=== PATIENT | female | born 1980 | race American Indian/Alaskan Native ===

== ENCOUNTER 2020-05-01 14:44 | Emergency (ER) | payer OTHER ==
[2020-05-01 16:26] VITALS: BP 135/62
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
[2020-05-01] MEDS ORDERED: ACETAMINOPHEN 325 MG TAB PO ONE (18:16)
[2020-05-01] MEDS ORDERED: ACETAMINOPHEN 325 MG TAB ONE (18:17)
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
== END 2020-05-02 20:15 | disposition home or self-care (01) ==
LOC: ED 14:44
DX: S13.4XXA Sprain of ligaments of cervical spine, initial encounter (principal); R51.9 Headache, unspecified; Z79.899 Other long term (current) drug therapy; V49.49XA Driver injured in collision with other motor vehicles in traffic accident, initial encounter; Y93.89 Activity, other specified; Y92.488 Other paved roadways as the place of occurrence of the external cause; Y99.8 Other external cause status
CPT/HCPCS: 70450; 72125; 99283

== ENCOUNTER 2020-05-29 12:06 | Emergency (ER) | payer SELFPAY ==
--- NOTE | 2020-05-29 13:32 | Emergency Department Report ---
ED General Adult HPI - General Chief complaint: Urogenital-Female Stated complaint: POSS UTI Time Seen by Provider: 05/29/20 13:21 Source: patient Mode of arrival: Ambulatory Limitations: No Limitations - History of Present Illness Initial comments: This pleasant 40-year-old female presents the emerge department chief complaint of pressure after she urinates, dysuria and urinary frequency over the past few weeks. She has been trying cranberry juice and AZO with only minimal relief in her symptoms. She denies any past medical history, current medication use or known allergies medications. She is not concerned if she is or not but does report she took a morning-after pill 2 days ago. She denies any vaginal discharge or concern about exposure to STDs. She denies abdominal or flank pain. She denies any associated fever, chills, night sweats, headache, dizziness, blurry vision, nausea,, diarrhea, chest pain, shortness of breath or any other associated symptoms. - Related Data Previous Rx's Medication Instructions Recorded Last Taken Type Dicyclomine [Bentyl] 20 mg PO Q6H PRN #30 tablet 01/12/20 Unknown Rx Diphenoxylate/Atropine [Lomotil] 1 - 2 tab PO Q4H PRN #15 tablet 01/12/20 Unknown Rx Famotidine [Pepcid] 20 mg PO BID #30 tablet 01/12/20 Unknown Rx Ondansetron [Zofran Odt] 4 mg PO Q6HR PRN #20 tab.rapdis 01/12/20 Unknown Rx Cyclobenzaprine [Flexeril] 10 mg PO QHS PRN #10 tablet 05/01/20 Unknown Rx Naproxen 500 mg PO Q12H PRN #12 tablet 05/01/20 Unknown Rx Ibuprofen [Motrin] 600 mg PO Q8H PRN #30 tablet 05/29/20 Unknown Rx Nitrofurantoin Geary/M-Cryst 100 mg PO Q12HR #14 capsule 05/29/20 Unknown Rx [Macrobid CAP] Allergies Allergy/AdvReac Type Severity Reaction Status Date / Time No Known Allergies Allergy Verified 01/11/20 20:18 ED Review of Systems ROS: Stated complaint: POSS UTI Other details as noted in HPI Comment: All other systems reviewed and negative Constitutional: denies: chills, fever Eyes: denies: eye pain, eye discharge, vision change ENT: denies: ear pain, throat pain Respiratory: denies: cough, shortness of breath, wheezing Cardiovascular: denies: chest pain, palpitations Endocrine: no symptoms reported Gastrointestinal: as per HPI. denies: abdominal pain, nausea, diarrhea Genitourinary: as per HPI, urgency, dysuria, frequency. denies: discharge Musculoskeletal: denies: back pain, joint swelling, arthralgia Skin: denies: rash, lesions Neurological: denies: headache, weakness, paresthesias Psychiatric: denies: anxiety, depression Hematological/Lymphatic: denies: easy bleeding, easy bruising ED Past Medical Hx - Past Medical History Previous Medical History?: No - Surgical History Past Surgical History?: No Additional Surgical History: x2 - Social History Smoking Status: Never Smoker Substance Use Type: Alcohol - Medications Home Medications: Home Medications Medication Instructions Recorded Confirmed Last Taken Type Dicyclomine [Bentyl] 20 mg PO Q6H PRN #30 tablet 01/12/20 Unknown Rx Diphenoxylate/Atropine [Lomotil] 1 - 2 tab PO Q4H PRN #15 tablet 01/12/20 Unknown Rx Famotidine [Pepcid] 20 mg PO BID #30 tablet 01/12/20 Unknown Rx Ondansetron [Zofran Odt] 4 mg PO Q6HR PRN #20 tab.rapdis 01/12/20 Unknown Rx Cyclobenzaprine [Flexeril] 10 mg PO QHS PRN #10 tablet 05/01/20 Unknown Rx Naproxen 500 mg PO Q12H PRN #12 tablet 05/01/20 Unknown Rx Ibuprofen [Motrin] 600 mg PO Q8H PRN #30 tablet 05/29/20 Unknown Rx Nitrofurantoin Geary/M-Cryst 100 mg PO Q12HR #14 capsule 05/29/20 Unknown Rx [Macrobid CAP] ED Physical Exam - General Limitations: No Limitations General appearance: alert, in no apparent distress - Head Head exam: Present: atraumatic, normocephalic - Eye Eye exam: Present: normal appearance, PERRL, EOMI Pupils: Present: normal accommodation - ENT ENT exam: Present: normal exam, normal orophraynx, mucous membranes moist - Neck Neck exam: Present: normal inspection, full ROM. Absent: tenderness, meni ngismus - Respiratory Respiratory exam: Present: normal lung sounds bilaterally. Absent: respiratory distress, wheezes, rales, rhonchi, stridor - Cardiovascular Cardiovascular Exam: Present: regular rate, normal rhythm, normal heart sounds. Absent: systolic murmur, diastolic murmur, rubs, gallop - GI/Abdominal GI/Abdominal exam: Present: soft, normal bowel sounds. Absent: distended, tenderness, guarding, rebound, rigid - Extremities Exam Extremities exam: Present: normal inspection, full ROM, normal capillary refill. Absent: tenderness, calf tenderness - Back Exam Back exam: Present: normal inspection, full ROM. Absent: tenderness, CVA tenderness (R), CVA tenderness (L) - Neurological Exam Neurological exam: Present: alert, oriented X3, normal gait - Psychiatric Psychiatric exam: Present: normal affect, normal mood - Skin Skin exam: Present: warm, dry, intact, normal color. Absent: rash ED Medical Decision Making - Lab Data Lab Results 05/29/20 Range/Units 13:13 Urine Color Ginny (Yellow) Urine Turbidity Clear (Clear) Urine pH 7.0 (5.0-7.0) Ur Specific Trail 1.012 (1.003-1.030) Urine Protein <15 mg/dl (Negative) mg/dL Urine Glucose (UA) Neg (Negative) mg/dL Urine Ketones Neg (Negative) mg/dL Urine Blood Neg (Negative) Urine Nitrite Pos (Negative) Urine Bilirubin Neg (Negative) Urine Urobilinogen 4.0 (<2.0) mg/dL Ur Leukocyte Esterase Neg (Negative) Urine WBC (Auto) 8.0 H (0.0-6.0) /HPF Urine RBC (Auto) 4.0 (0.0-6.0) /HPF U Epithel Cells (Auto) 4.0 (0-13.0) /HPF Urine Bacteria (Auto) 1+ (Negative) /HPF Urine Mucus Few /HPF Urine HCG, Qual Negative (Negative) - Medical Decision Making Patient's exam, HPI and urine are consistent with urinary tract infection. test was negative. Patient declined any screening for STD and had no pelvic pain making my suspicion for PID or TOA unlikely. We will treat her with Macrobid, anti-inflammatories and recommended outpatient follow-up with primary care doctor. She is instructed to return the emerge department if develops any change or worsening symptoms. She verbalized understand the diagnosis, treatment plan and follow-up instructions and all of her questions were answered. Critical care attestation.: If time is entered above; I have spent that time in minutes in the direct care of this critically ill patient, excluding procedure time. ED Disposition Clinical Impression: Acute cystitis Qualifiers: Hematuria presence: with hematuria Qualified Code(s): N30.01 - Acute cystitis with hematuria Disposition: TO HOME OR SELFCARE Is pt being admited?: No Condition: Stable Instructions: Urinary Tract Infection, Adult, [id number] Prescriptions: Nitrofurantoin Geary/M-Cryst [Macrobid CAP] 100 mg PO Q12HR #14 capsule Ibuprofen [Motrin] 600 mg PO Q8H PRN #30 tablet PRN Reason: Pain Referrals: [facility] [Provider Group] - 3-5 Days Time of Disposition: 14:22
[2020-05-29 13:56] LABS: Bacteria,Urine 1+ /HPF (Negative); Bilirubin,Urine NEG (Negative); Blood,Urine NEG (Negative); Color,Urine Amber (Yellow); Mucus,Urine FEW /HPF; Protein,Urine <15 mg/dL mg/dL (Negative)
[2020-05-29 14:03] LABS: HCG Qualitative,Urine Negative (Negative)
== END 2020-05-29 14:32 | disposition home or self-care (01) ==
LOC: ED 12:06
DX: N30.00 Acute cystitis without hematuria (principal); Z79.899 Other long term (current) drug therapy; Z98.890 Other specified postprocedural states
CPT/HCPCS: 81001; 81025; 99283

== ENCOUNTER 2020-09-08 14:06 | Emergency (ER) | payer SELFPAY ==
[2020-09-08 14:20] VITALS: BP 119/85
[2020-09-08 15:29] LABS: Bilirubin,Urine NEG (Negative); Blood,Urine NEG (Negative); Color,Urine Yellow (Yellow); Mucus,Urine 3+ /HPF; Urobilinogen,Urine < 2.0 mg/dL (<2.0)
[2020-09-08 15:30] LABS: HCG Qualitative,Urine Negative (Negative)
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
== END 2020-09-08 16:19 | disposition home or self-care (01) ==
LOC: ED 14:06
DX: R30.0 Dysuria (principal); N76.0 Acute vaginitis; Z79.899 Other long term (current) drug therapy
CPT/HCPCS: 81001; 81025; 99283

== ENCOUNTER 2020-11-22 13:34 | Emergency (ER) | payer OTHER ==
[2020-11-22 14:12] VITALS: BP 117/66
--- NOTE | 2020-11-22 14:22 | Event Note ---
ED Screening Note Date of service: 11/22/20 Time: 14:21 ED Screening Note: 40-year-old female patient presents emergency department with complaints of vaginal discharge for 2 days. Patient is concerned about possible STD exposure. 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 General: Awake, appropriately interactive. Tearful, anxious. Neck: Supple. Full range of motion intact. Cardiovascular: Normal peripheral perfusion. Pulmonary: No respiratory distress. Patient is speaking normally without use of accessory muscles. Skin: No apparent rashes or lesions. Neurological: No facial asymmetry. Speech is clear. Follows commands. Patient is alert and oriented. Musculoskeletal: Moves all four extremities spontaneously with normal range of motion. Psych: Cooperative. Appropriate mood and affect. I have greeted and performed a focused rapid initial assessment of this patient. A comprehensive ED assessment and evaluation of the patient, analysis of all test results, and completion of the medical decision-making process will be conducted by additional ED providers. This initial assessment/diagnostic orders/clinical plan/treatment(s) is/are subject to change based on patients health status, clinical progression and re-assessment. Further treatment and workup at subsequent clinical provider's discretion. Patient/guardian urged not to elope from the ED as their condition may be serious if not clinically assessed and managed.
[2020-11-22 15:08] LABS: Bacteria,Urine 1+ /HPF (Negative); Bilirubin,Urine NEG (Negative); Blood,Urine SM (Negative); Color,Urine Yellow (Yellow); Mucus,Urine 1+ /HPF; Urobilinogen,Urine < 2.0 mg/dL (<2.0)
[2020-11-22 15:13] LABS: HCG Qualitative,Urine Negative (Negative)
[2020-11-22] MEDS ORDERED: LIDOCAINE-MPF (1%) 10 MG/1 ML VIAL 5 ML INFILTRATI ONE (15:30)
[2020-11-22] MEDS ORDERED: AZITHROMYCIN 250 MG TAB PO ONE (15:30)
--- NOTE | 2020-11-22 15:32 | Emergency Department Report ---
ED Dysuria HPI - HPI Chief Complaint: Urogenital-Female Stated Complaint: BACTERIAL INFECTION Time Seen by Provider: 11/22/20 15:28 Severity: Mild Symptoms: Dysuria: No, Frequency: No, Suprapubic Pain: No, Flank Pain: No, Fever: No, Hematuria: No, Abdominal Pain: No, Previous UTI's: No Other History: Patient is a 40-year-old female that comes to the ER today complaining of vaginal discharge. She thinks it is her BV which she has reportedly had in the past. She states she was treated for this here a couple months ago and her symptoms got better. She did not follow-up with her primary care or OB. She then adds that she is going through divorce and she thinks her is cheating on her. She is very constricted and with 2 small children in the room. She is refusing to have a wet prep at this time. She will follow up with her HARP MAKER. However, given her concerns I am treating her empirically for STI. EMR has been reviewed and there was no BV on her last wet prep. Patient states that she has never had an STI. ED Review of Systems ROS: Stated complaint: BACTERIAL INFECTION Other details as noted in HPI Comment: All other systems reviewed and negative ED Past Medical Hx - Past Medical History Previous Medical History?: No - Surgical History Past Surgical History?: Yes Additional Surgical History: x2 - Family History Family history: no significant - Social History Smoking Status: Never Smoker - Medications Home Medications: Home Medications Medication Instructions Recorded Confirmed Last Taken Type Dicyclomine [Bentyl] 20 mg PO Q6H PRN #30 tablet 01/12/20 Unknown Rx Diphenoxylate/Atropine [Lomotil] 1 - 2 tab PO Q4H PRN #15 tablet 01/12/20 Unknown Rx Famotidine [Pepcid] 20 mg PO BID #30 tablet 01/12/20 Unknown Rx Ondansetron [Zofran Odt] 4 mg PO Q6HR PRN #20 tab.rapdis 01/12/20 Unknown Rx Cyclobenzaprine [Flexeril] 10 mg PO QHS PRN #10 tablet 05/01/20 Unknown Rx Naproxen 500 mg PO Q12H PRN #12 tablet 05/01/20 Unknown Rx Ibuprofen [Motrin] 600 mg PO Q8H PRN #30 tablet 05/29/20 Unknown Rx Nitrofurantoin [place]/M-Cryst 100 mg PO Q12HR #14 capsule 05/29/20 Unknown Rx [Macrobid CAP] metroNIDAZOLE [Flagyl TAB] 500 mg PO Q12HR #14 tab 11/22/20 Unknown Rx Dysuria Exam - Exam General: Vital signs noted. No distress. Alert and acting appropriately. Exam: Yes Moist Mucous Membranes, No CVA Tenderness, No Abdominal Tenderness, No Rigidity or Guarding Labs: Lab Results 11/22/20 Range/Units 14:40 Urine Color Yellow (Yellow) Urine Turbidity Slightly-cloudy (Clear) Urine pH 5.0 (5.0-7.0) Ur Specific [place] 1.026 (1.003-1.030) Urine Protein 100 mg/dl (Negative) mg/dL Urine Glucose (UA) Neg (Negative) mg/dL Urine Ketones Neg (Negative) mg/dL Urine Blood Sm (Negative) Urine Nitrite Neg (Negative) Urine Bilirubin Neg (Negative) Urine Urobilinogen < 2.0 (<2.0) mg/dL Ur Leukocyte Esterase Neg (Negative) Urine WBC (Auto) 5.0 (0.0-6.0) /HPF Urine RBC (Auto) 6.0 (0.0-6.0) /HPF U Epithel Cells (Auto) 7.0 (0-13.0) /HPF Urine Bacteria (Auto) 1+ (Negative) /HPF Urine Mucus 1+ /HPF Urine HCG, Qual Negative (Negative) ED Course Vital Signs 11/22/20 13:56 Temperature 98.3 F Pulse Rate 70 Respiratory 18 Rate Blood Pressure 117/66 O2 Sat by Pulse 98 Oximetry ED Medical Decision Making - Medical Decision Making Vital Signs 11/22/20 13:56 Temperature 98.3 F Pulse Rate 70 Respiratory 18 Rate Blood Pressure 117/66 O2 Sat by Pulse 98 Oximetry Lab Results 11/22/20 Range/Units 14:40 Urine Color Yellow (Yellow) Urine Turbidity Slightly-cloudy (Clear) Urine pH 5.0 (5.0-7.0) Ur Specific [place] 1.026 (1.003-1.030) Urine Protein 100 mg/dl (Negative) mg/dL Urine Glucose (UA) Neg (Negative) mg/dL Urine Ketones Neg (Negative) mg/dL Urine Blood Sm (Negative) Urine Nitrite Neg (Negative) Urine Bilirubin Neg (Negative) Urine Urobilinogen < 2.0 (<2.0) mg/dL Ur Leukocyte Esterase Neg (Negative) Urine WBC (Auto) 5.0 (0.0-6.0) /HPF Urine RBC (Auto) 6.0 (0.0-6.0) /HPF U Epithel Cells (Auto) 7.0 (0-13.0) /HPF Urine Bacteria (Auto) 1+ (Negative) /HPF Urine Mucus 1+ /HPF Urine HCG, Qual Negative (Negative) UA NOTED PREG NOTED EMPIRIC TREATMENT FOR STI DC HOME ON FLAGYL On discharge patient is in no acute distress. Patient taking p.o. She is nontoxic [id number]. She has normal vital signs. She understands the need to follow-up with [facility] for ongoing evaluation and treatment. - Differential Diagnosis UTI/BV/STI Critical care attestation.: If time is entered above; I have spent that time in minutes in the direct care of this critically ill patient, excluding procedure time. ED Disposition Clinical Impression: Vaginitis Disposition: DC-01 TO HOME OR SELFCARE Is pt being admited?: No Does the pt Need Aspirin: No Condition: Stable Prescriptions: metroNIDAZOLE [Flagyl TAB] 500 mg PO Q12HR #14 tab Referrals: CANDICE ÁLVAREZ MD [Staff Physician] - 3-5 Days Forms: Work/School Release Form(ED) Time of Disposition: 15:31
== END 2020-11-22 16:08 | disposition home or self-care (01) ==
LOC: ED 13:34
DX: N76.0 Acute vaginitis (principal); Z98.890 Other specified postprocedural states; Z79.899 Other long term (current) drug therapy
CPT/HCPCS: 81001; 81025; 96372; 99283; J0696

== ENCOUNTER 2021-01-22 20:15 | Emergency (ER) | payer OTHER ==
--- NOTE | 2021-01-23 00:15 | Emergency Department Report ---
ED Female HPI - General Chief complaint: Urogenital-Female Stated complaint: POSS BV Time Seen by Provider: 01/22/21 22:57 Source: patient Mode of arrival: Ambulatory Limitations: No Limitations - History of Present Illness Initial comments: 40-year-old asthmatic female with emerge department complaining of recurrent vaginal discharge have multiple episodes of bacterial vaginosis which she has had treated earlier in the month and has reemerged and she is seeking further evaluation treatment options to eradicate the issue. She states she is unsure why it keeps returning but she takes medication in its entirety but she not even able to follow-up with her D[employer]ING SERVICE WORKER so she returns emergency department today seeking another bacterial vaginosis treatment. Patient states the last time she was treated for STD panel but she reports no possibility for STDs occurred MD Complaint: vaginal discharge, other (Malodorous vaginal discharge) Severity: mild Consistency: constant Improves with: none Worsens with: none - Related Data Previous Rx's Medication Instructions Recorded Last Taken Type Dicyclomine [Bentyl] 20 mg PO Q6H PRN #30 tablet 01/12/20 Unknown Rx Diphenoxylate/Atropine [Lomotil] 1 - 2 tab PO Q4H PRN #15 tablet 01/12/20 Unknown Rx Famotidine [Pepcid] 20 mg PO BID #30 tablet 01/12/20 Unknown Rx Ondansetron [Zofran Odt] 4 mg PO Q6HR PRN #20 tab.rapdis 01/12/20 Unknown Rx Cyclobenzaprine [Flexeril] 10 mg PO QHS PRN #10 tablet 05/01/20 Unknown Rx Naproxen 500 mg PO Q12H PRN #12 tablet 05/01/20 Unknown Rx Ibuprofen [Motrin] 600 mg PO Q8H PRN #30 tablet 05/29/20 Unknown Rx Nitrofurantoin [place]/M-Cryst 100 mg PO Q12HR #14 capsule 05/29/20 Unknown Rx [Macrobid CAP] metroNIDAZOLE [Flagyl TAB] 500 mg PO Q12HR #14 tab 11/22/20 Unknown Rx Clindamycin [Clindamycin CAP] 150 mg PO Q8HR #30 capsule 01/22/21 Unknown Rx Allergies Allergy/AdvReac Type Severity Reaction Status Date / Time No Known Allergies Allergy Verified 01/11/20 20:18 ED Review of Systems ROS: Stated complaint: POSS BV Other details as noted in HPI Comment: All other systems reviewed and negative ED Past Medical Hx - Past Medical History Previous Medical History?: No - Surgical History Past Surgical History?: Yes Additional Surgical History: x2 - Social History Smoking Status: Never Smoker - Medications Home Medications: Home Medications Medication Instructions Recorded Confirmed Last Taken Type Dicyclomine [Bentyl] 20 mg PO Q6H PRN #30 tablet 01/12/20 Unknown Rx Diphenoxylate/Atropine [Lomotil] 1 - 2 tab PO Q4H PRN #15 tablet 01/12/20 Unknown Rx Famotidine [Pepcid] 20 mg PO BID #30 tablet 01/12/20 Unknown Rx Ondansetron [Zofran Odt] 4 mg PO Q6HR PRN #20 tab.rapdis 01/12/20 Unknown Rx Cyclobenzaprine [Flexeril] 10 mg PO QHS PRN #10 tablet 05/01/20 Unknown Rx Naproxen 500 mg PO Q12H PRN #12 tablet 05/01/20 Unknown Rx Ibuprofen [Motrin] 600 mg PO Q8H PRN #30 tablet 05/29/20 Unknown Rx Nitrofurantoin [place]/M-Cryst 100 mg PO Q12HR #14 capsule 05/29/20 Unknown Rx [Macrobid CAP] metroNIDAZOLE [Flagyl TAB] 500 mg PO Q12HR #14 tab 11/22/20 Unknown Rx Clindamycin [Clindamycin CAP] 150 mg PO Q8HR #30 capsule 01/22/21 Unknown Rx ED Physical Exam - General Limitations: No Limitations General appearance: alert, in no apparent distress - Head Head exam: Present: atraumatic, normocephalic - Eye Eye exam: Present: normal appearance, PERRL, EOMI Pupils: Present: normal accommodation - ENT ENT exam: Present: normal exam, normal orophraynx, mucous membranes moist - Neck Neck exam: Present: normal inspection - Respiratory Respiratory exam: Present: normal lung sounds bilaterally. Absent: respiratory distress - Cardiovascular Cardiovascular Exam: Present: regular rate, normal rhythm. Absent: systolic murmur, diastolic murmur, rubs, gallop - GI/Abdominal GI/Abdominal exam: Present: soft, normal bowel sounds - Extremities Exam Extremities exam: Present: normal inspection - Back Exam Back exam: Present: normal inspection - Neurological Exam Neurological exam: Present: alert, oriented X3 - Psychiatric Psychiatric exam: Present: normal affect, normal mood - Skin Skin exam: Present: warm, dry, intact, normal color. Absent: rash ED Course Vital Signs 01/22/21 20:31 Temperature 98.6 F Pulse Rate 76 Respiratory 16 Rate Blood Pressure 145/75 O2 Sat by Pulse 100 Oximetry ED Medical Decision Making - Medical Decision Making Four 1-year-old [place]inese female with recurrent bacterial vaginosis infections presents emerged department seeking treatment for another episode. Reports no pelvic pain or abdominal pain no fever, chills, sweats no vaginal bleeding no dysuria strongly encourage patient to follow-up with a DINING SERVICE WORKER for definitive treatment/management of this recurrent issue and also provided her with a few DINING SERVICE WORKER groups in the area which would be a good candidate for her to follow-up. She did receive this in the past but has not yet followed up as recommended but states that she will do so now that the issue is continuously reemerging Critical care attestation.: If time is entered above; I have spent that time in minutes in the direct care of this critically ill patient, excluding procedure time. ED Disposition Clinical Impression: Vaginitis Disposition: DC-01 TO HOME OR SELFCARE Is pt being admited?: No Does the pt Need Aspirin: No Condition: Stable Instructions: Bacterial Vaginosis, [id number] Prescriptions: Clindamycin [Clindamycin CAP] 150 mg PO Q8HR #30 capsule Referrals: [facility] [Provider Group] - 3-5 Days [facility] [Provider Group] - 3-5 Days [facility] [Provider Group] - 3-5 Days
== END 2021-01-22 23:59 | disposition home or self-care (01) ==
LOC: ED 20:15
CPT/HCPCS: 99282

== ENCOUNTER 2021-06-17 07:49 | Emergency (ER) | payer OTHER ==
[2021-06-17] MEDS ORDERED: KETOROLAC 60 MG/2 ML INJ IM ONE ×2 (08:07→13:56)
[2021-06-17] MEDS ORDERED: CYCLOBENZAPRINE 10 MG TAB PO ONE ×2 (08:07→13:56)
[2021-06-17] MEDS ORDERED: predniSONE 20 MG TAB PO ONE ×2 (08:07→13:56)
--- NOTE | 2021-06-17 09:08 | Emergency Department Report ---
ED Neck Pain/Injury HPI - General Chief Complaint: Neck Pain/Injury Stated Complaint: "FEEL LIKE HAVING HEART ATTACK" Time Seen by Provider: 06/17/21 08:02 Mode of arrival: Ambulatory Limitations: No Limitations - History of Present Illness Initial Comments: This is a 41-year-old female nontoxic, well nourished in appearance, no acute signs of distress presents to the ED with c/o of left sided upper back/neck pain x 3 days. 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 Patient states that pain radiates through to his left upper extremity. When I asked patient why she believes she is having a heart attack because this is where her sinus sheet was, patient stated because she is having left-sided neck pain with radiation to her left arm and she was concerned. Patient otherwise denies any complaints of chest pain or shortness of breath. Patient denies any other complaints or symptoms. Patient stated pain is aggravated with movement on her left cervical paraspinal area and revealed with rest and no movement. Patient denies any trauma. Denies any bladder or bowel instability. Patient denies any urinary symptoms. Denies any fever, chills, nausea, vomiting, headache, stiff neck, chest pain or shortness of breath. Patient denies any numbness or tingling. Denies any allergies. Denies significant past medical history. MD Complaint: upper back pain -: days(s) Radiation: left shoulder, left upper extremity Severity: mild Severity scale (0 -10): 3 Quality: aching Consistency: intermittent Improves With: immobilization Worsens With: movement of extremity, movement of neck Associated Symptoms: none. denies: headache, fever, numbness, tingling, weakness, vertigo, difficulty walking, swollen glands, difficulty swallowing, nausea, vomiting Treatments Prior to Arrival: none - Related Data Previous Rx's Medication Instructions Recorded Last Taken Type Dicyclomine [Bentyl] 20 mg PO Q6H PRN #30 tablet 01/12/20 Unknown Rx Diphenoxylate/Atropine [Lomotil] 1 - 2 tab PO Q4H PRN #15 tablet 01/12/20 Unknown Rx Famotidine [Pepcid] 20 mg PO BID #30 tablet 01/12/20 Unknown Rx Ondansetron [Zofran Odt] 4 mg PO Q6HR PRN #20 tab.rapdis 01/12/20 Unknown Rx Cyclobenzaprine [Flexeril] 10 mg PO QHS PRN #10 tablet 05/01/20 Unknown Rx Naproxen 500 mg PO Q12H PRN #12 tablet 05/01/20 Unknown Rx Ibuprofen [Motrin] 600 mg PO Q8H PRN #30 tablet 05/29/20 Unknown Rx Nitrofurantoin [place]/M-Cryst 100 mg PO Q12HR #14 capsule 05/29/20 Unknown Rx [Macrobid CAP] metroNIDAZOLE [Flagyl TAB] 500 mg PO Q12HR #14 tab 11/22/20 Unknown Rx Clindamycin [Clindamycin CAP] 150 mg PO Q8HR #30 capsule 01/22/21 Unknown Rx Cyclobenzaprine [Flexeril] 10 mg PO QHS PRN #10 tablet 06/17/21 Unknown Rx Naproxen 500 mg PO Q12H PRN #12 tablet 06/17/21 Unknown Rx Allergies Allergy/AdvReac Type Severity Reaction Status Date / Time No Known Allergies Allergy Verified 01/11/20 20:18 ED Review of Systems ROS: Stated complaint: "FEEL LIKE HAVING HEART ATTACK" Other details as noted in HPI Comment: All other systems reviewed and negative Constitutional: denies: chills, fever Eyes: denies: eye pain, eye discharge, vision change ENT: denies: ear pain, throat pain Respiratory: denies: cough, shortness of breath, wheezing Cardiovascular: denies: chest pain, palpitations Endocrine: no symptoms reported Gastrointestinal: denies: abdominal pain, nausea, diarrhea Genitourinary: denies: urgency, dysuria, discharge Musculoskeletal: denies: back pain, joint swelling, arthralgia Skin: denies: rash, lesions Neurological: denies: headache, weakness, paresthesias Psychiatric: denies: anxiety, depression Hematological/Lymphatic: denies: easy bleeding, easy bruising ED Past Medical Hx - Past Medical History Previous Medical History?: Yes Additional medical history: high cholesterol - Surgical History Past Surgical History?: Yes Additional Surgical History: x2 - Social History Smoking Status: Never Smoker - Medications Home Medications: Home Medications Medication Instructions Recorded Confirmed Last Taken Type Dicyclomine [Bentyl] 20 mg PO Q6H PRN #30 tablet 01/12/20 Unknown Rx Diphenoxylate/Atropine [Lomotil] 1 - 2 tab PO Q4H PRN #15 tablet 01/12/20 Unknown Rx Famotidine [Pepcid] 20 mg PO BID #30 tablet 01/12/20 Unknown Rx Ondansetron [Zofran Odt] 4 mg PO Q6HR PRN #20 tab.rapdis 01/12/20 Unknown Rx Cyclobenzaprine [Flexeril] 10 mg PO QHS PRN #10 tablet 05/01/20 Unknown Rx Naproxen 500 mg PO Q12H PRN #12 tablet 05/01/20 Unknown Rx Ibuprofen [Motrin] 600 mg PO Q8H PRN #30 tablet 05/29/20 Unknown Rx Nitrofurantoin [place]/M-Cryst 100 mg PO Q12HR #14 capsule 05/29/20 Unknown Rx [Macrobid CAP] metroNIDAZOLE [Flagyl TAB] 500 mg PO Q12HR #14 tab 11/22/20 Unknown Rx Clindamycin [Clindamycin CAP] 150 mg PO Q8HR #30 capsule 01/22/21 Unknown Rx Cyclobenzaprine [Flexeril] 10 mg PO QHS PRN #10 tablet 06/17/21 Unknown Rx Naproxen 500 mg PO Q12H PRN #12 tablet 06/17/21 Unknown Rx ED Physical Exam - General Limitations: No Limitations General appearance: alert, in no apparent distress - Head Head exam: Present: atraumatic, normocephalic - Eye Eye exam: Present: normal appearance - Neck Neck exam: Present: normal inspection, full ROM. Absent: lymphadenopathy - Respiratory Respiratory exam: Present: normal lung sounds bilaterally. Absent: respiratory distress, wheezes, rales, rhonchi, stridor, chest wall tenderness, accessory muscle use, decreased breath sounds, prolonged expiratory - Cardiovascular Cardiovascular Exam: Present: regular rate, normal rhythm, normal heart sounds. Absent: bradycardia, tachycardia, irregular rhythm, systolic murmur, diastolic murmur, rubs, gallop - Extremities Exam Extremities exam: Present: normal inspection, full ROM, normal capillary refill. Absent: tenderness, joint swelling - Back Exam Back exam: Present: normal inspection, full ROM, paraspinal tenderness (left cervical paraspinal area). Absent: tenderness, CVA tenderness (R), CVA tenderness (L), muscle spasm, vertebral tenderness, rash noted - Neurological Exam Neurological exam: Present: alert, oriented X3, normal gait - Psychiatric Psychiatric exam: Present: normal affect, normal mood - Skin Skin exam: Present: warm, dry, intact, normal color. Absent: rash ED Course Vital Signs 06/17/21 07:52 Temperature 98 F Pulse Rate 85 Respiratory 16 Rate Blood Pressure 123/90 [Right] O2 Sat by Pulse 100 Oximetry - Reevaluation(s) Reevaluation #1: 06/17/21 09:10 Patient is speaking in full sentences with no signs of distress noted. ED Medical Decision Making - Medical Decision Making This is a 41-year-old female that presents with neck muscle strain. Patient is stable was examined by me. There is no spinal tenderness. There is no cauda equina syndrome during examination. No bladder or bowel instability. Patient received Toradol 60 mg IM, flexeril, and Prednisone in the ED which stated that her symptoms has resolved and subsided. Patient stated family member will drive patient home after discharge due to possible drowsiness. Patient is discharged with muscle relaxant and Motrin. Patient was instructed not to operate any machinery while taking muscle relaxant as they cause her drowsiness. Patient was referred to Follow-up with a primary care doctor in 3-5 days or if symptoms worsen and continue return to emergency room as soon as possible. At time of discharge, the patient does not seem toxic or ill in appearance. No acute signs of distress noted. Patient agrees to discharge treatment plan of care. No further questions noted by the patient. This chart is dictated with using [employer] Dictation Program Critical care attestation.: If time is entered above; I have spent that time in minutes in the direct care of this critically ill patient, excluding procedure time. ED Disposition Clinical Impression: Cervical muscle pain Disposition: 01 HOME / SELF CARE / HOMELESS Is pt being admited?: No Does the pt Need Aspirin: No Condition: Stable Instructions: Muscle Strain, [id number], Cyclobenzaprine tablets Additional Instructions: Follow-up with your primary care doctor in 3-5 days or if symptoms worsen such as bladder or bowel stability, chest pain, short of breath, numbness or tingling sensation in extremities, headache, dizziness, visual changes, nausea vomiting, or abdominal pain, return back to emergency room as was possible. Take naproxen and Flexeril as prescribed. Do not operate heavy machinery while taking Flexeril due to sedation Prescriptions: Cyclobenzaprine [Flexeril] 10 mg PO QHS PRN #10 tablet PRN Reason: Muscle Spasm Naproxen 500 mg PO Q12H PRN #12 tablet PRN Reason: Pain , Severe (7-10) Referrals: PRIMARY CARE, [Primary Care Provider] - 3-5 Days TUNG ALVARADO MD [Staff Physician] - 3-5 Days Forms: Work/School Release Form(ED) Time of Disposition: 14:14
[2021-06-17 15:07] VITALS: BP 144/90
--- NOTE | 2021-06-19 14:24 | Electrocardiograph Report ---
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
== END 2021-06-17 15:07 | disposition home or self-care (01) ==
LOC: ED 07:49
DX: M54.2 Cervicalgia (principal)
CPT/HCPCS: 93005; 96372; 99282; J1885; J7512

== ENCOUNTER 2021-06-23 02:29 | Emergency (ER) | payer OTHER ==
--- NOTE | 2021-06-23 07:32 | Emergency Department Report ---
ED Neck Pain/Injury HPI - General Chief Complaint: Neck Pain/Injury Stated Complaint: PINCHED NERVE Time Seen by Provider: 06/23/21 07:03 Mode of arrival: Ambulatory Limitations: No Limitations - History of Present Illness Initial Comments: 41-year-old -[place] female presents back to the emergency room from being seen on 06/17/2021 for neck pain that radiates down her left arm. Patient states that on the she was ruled out MS. Patient denies any trauma no falls. She states aggravating factors when she turns her neck to the left and right. Alleviating factors is resting. Patient was discharged on naproxen and cyclobenzaprine and states those do not help. Patient was referred to a primary care provider but did not follow-up. Patient denies any headache no nausea no vomiting no change of vision no weakness in her hands. Patient is able to hold her cell phone without any problem. She is right-handed. She is currently not working. She does admit to lifting heavy objects at home with her kids. MD Complaint: neck pain Onset/Timin -: week(s) Radiation: left shoulder Severity scale (0 -10): 8 Consistency: intermittent Improves With: remaining still Worsens With: movement of neck - Related Data Previous Rx's Medication Instructions Recorded Last Taken Type Dicyclomine [Bentyl] 20 mg PO Q6H PRN #30 tablet 01/12/20 Unknown Rx Diphenoxylate/Atropine [Lomotil] 1 - 2 tab PO Q4H PRN #15 tablet 01/12/20 Unknown Rx Famotidine [Pepcid] 20 mg PO BID #30 tablet 01/12/20 Unknown Rx Ondansetron [Zofran Odt] 4 mg PO Q6HR PRN #20 tab.rapdis 01/12/20 Unknown Rx Cyclobenzaprine [Flexeril] 10 mg PO QHS PRN #10 tablet 05/01/20 Unknown Rx Naproxen 500 mg PO Q12H PRN #12 tablet 05/01/20 Unknown Rx Ibuprofen [Motrin] 600 mg PO Q8H PRN #30 tablet 05/29/20 Unknown Rx Nitrofurantoin [place]/M-Cryst 100 mg PO Q12HR #14 capsule 05/29/20 Unknown Rx [Macrobid CAP] metroNIDAZOLE [Flagyl TAB] 500 mg PO Q12HR #14 tab 11/22/20 Unknown Rx Clindamycin [Clindamycin CAP] 150 mg PO Q8HR #30 capsule 01/22/21 Unknown Rx Cyclobenzaprine [Flexeril] 10 mg PO QHS PRN #10 tablet 06/17/21 Unknown Rx Naproxen 500 mg PO Q12H PRN #12 tablet 06/17/21 Unknown Rx Allergies Allergy/AdvReac Type Severity Reaction Status Date / Time No Known Allergies Allergy Verified 01/11/20 20:18 ED Review of Systems ROS: Stated complaint: PINCHED NERVE Other details as noted in HPI ED Past Medical Hx - Past Medical History Previous Medical History?: Yes Additional medical history: high cholesterol - Surgical History Past Surgical History?: Yes Additional Surgical History: x2 - Social History Smoking Status: Never Smoker - Medications Home Medications: Home Medications Medication Instructions Recorded Confirmed Last Taken Type Dicyclomine [Bentyl] 20 mg PO Q6H PRN #30 tablet 01/12/20 Unknown Rx Diphenoxylate/Atropine [Lomotil] 1 - 2 tab PO Q4H PRN #15 tablet 01/12/20 Unknown Rx Famotidine [Pepcid] 20 mg PO BID #30 tablet 01/12/20 Unknown Rx Ondansetron [Zofran Odt] 4 mg PO Q6HR PRN #20 tab.rapdis 01/12/20 Unknown Rx Cyclobenzaprine [Flexeril] 10 mg PO QHS PRN #10 tablet 05/01/20 Unknown Rx Naproxen 500 mg PO Q12H PRN #12 tablet 05/01/20 Unknown Rx Ibuprofen [Motrin] 600 mg PO Q8H PRN #30 tablet 05/29/20 Unknown Rx Nitrofurantoin [place]/M-Cryst 100 mg PO Q12HR #14 capsule 05/29/20 Unknown Rx [Macrobid CAP] metroNIDAZOLE [Flagyl TAB] 500 mg PO Q12HR #14 tab 11/22/20 Unknown Rx Clindamycin [Clindamycin CAP] 150 mg PO Q8HR #30 capsule 01/22/21 Unknown Rx Cyclobenzaprine [Flexeril] 10 mg PO QHS PRN #10 tablet 06/17/21 Unknown Rx Naproxen 500 mg PO Q12H PRN #12 tablet 06/17/21 Unknown Rx ED Physical Exam - General Limitations: No Limitations ED Course Vital Signs 06/23/21 02:32 Temperature 98.7 F Pulse Rate 90 Respiratory 18 Rate Blood Pressure 141/86 O2 Sat by Pulse 98 Oximetry Critical care attestation.: If time is entered above; I have spent that time in minutes in the direct care of this critically ill patient, excluding procedure time. ED Disposition Clinical Impression: Cervical muscle pain Disposition: HOME / SELF CARE / HOMELESS Is pt being admited?: No Does the pt Need Aspirin: No Condition: Stable Instructions: Radicular Pain Additional Instructions: Continue taking your pain medicine as prescribed. I recommend following up with a specialist. I have listed 1 below for your convenience. Referrals: PRIMARY CARE, [Primary Care Provider] - 3-5 Days [facility] [Provider Group] - 3-5 Days [facility] [Provider Group] - 3-5 Days
[2021-06-23 07:38] VITALS: BP 128/82
== END 2021-06-23 07:38 | disposition home or self-care (01) ==
LOC: ED 02:29
DX: M54.2 Cervicalgia (principal)
CPT/HCPCS: 99282

== ENCOUNTER 2021-08-15 13:37 | Emergency (ER) | payer OTHER ==
[2021-08-15 16:02] LABS: WBC,Urine < 1.0 /HPF (0.0-6.0)
[2021-08-15 16:06] LABS: HCG Qualitative,Urine Negative (Negative)
[2021-08-15 16:11] LABS: Bilirubin,Urine Negative (Negative); Color,Urine Straw (Yellow)
[2021-08-15 16:12] LABS: Blood,Urine Negative (Negative); RBC,Urine < 1.0 /HPF (0.0-6.0); Urobilinogen,Urine < 2.0 mg/dL (<2.0)
--- NOTE | 2021-08-15 16:20 | Emergency Department Report ---
ED Dysuria HPI - HPI Chief Complaint: Urogenital-Female Stated Complaint: BLADDER INFECTION Time Seen by Provider: 08/15/21 16:17 Duration: 2 Days Location of Discomfort: Suprapubic Severity: Mild Symptoms: Dysuria: Yes, Frequency: Yes, Suprapubic Pain: Yes, Flank Pain: No, Fever: No, Hematuria: No, Abdominal Pain: No, Previous UTI's: No Other History: 41 yo comes to er with frequency and urgency. No vag dc. No back pain. No abd crandall. No n/v/d. No fever or chills. Ambulatory non ill and non toxic on exam ED Review of Systems ROS: Stated complaint: BLADDER INFECTION Other details as noted in HPI Comment: All other systems reviewed and negative ED Past Medical Hx - Past Medical History Previous Medical History?: No Additional medical history: high cholesterol - Surgical History Past Surgical History?: No Additional Surgical History: x2 - Family History Family history: no significant - Social History Smoking Status: Never Smoker - Medications Home Medications: Home Medications Medication Instructions Recorded Confirmed Last Taken Type Dicyclomine [Bentyl] 20 mg PO Q6H PRN #30 tablet 01/12/20 Unknown Rx Diphenoxylate/Atropine [Lomotil] 1 - 2 tab PO Q4H PRN #15 tablet 01/12/20 Unknown Rx Famotidine [Pepcid] 20 mg PO BID #30 tablet 01/12/20 Unknown Rx Ondansetron [Zofran Odt] 4 mg PO Q6HR PRN #20 tab.rapdis 01/12/20 Unknown Rx Cyclobenzaprine [Flexeril] 10 mg PO QHS PRN #10 tablet 05/01/20 Unknown Rx Naproxen 500 mg PO Q12H PRN #12 tablet 05/01/20 Unknown Rx Ibuprofen [Motrin] 600 mg PO Q8H PRN #30 tablet 05/29/20 Unknown Rx Nitrofurantoin [place]/M-Cryst 100 mg PO Q12HR #14 capsule 05/29/20 Unknown Rx [Macrobid CAP] metroNIDAZOLE [Flagyl TAB] 500 mg PO Q12HR #14 tab 11/22/20 Unknown Rx Clindamycin [Clindamycin CAP] 150 mg PO Q8HR #30 capsule 01/22/21 Unknown Rx Cyclobenzaprine [Flexeril] 10 mg PO QHS PRN #10 tablet 06/17/21 Unknown Rx Naproxen 500 mg PO Q12H PRN #12 tablet 06/17/21 Unknown Rx Sulfamethoxazole/Trimethoprim 1 each PO BID #10 tablet 08/15/21 Unknown Rx [Bactrim DS TAB] Dysuria Exam - Exam General: Vital signs noted. No distress. Alert and acting appropriately. Exam: Yes Moist Mucous Membranes, No CVA Tenderness, No Abdominal Tenderness, No Rigidity or Guarding Labs: Lab Results 08/15/21 Range/Units Unknown Urine Color Straw (Yellow) Urine Turbidity Clear (Clear) Urine pH 7.0 (5.0-7.0) Ur Specific [place] 1.010 (1.003-1.030) Urine Protein 30 mg/dl (Negative) mg/dL Urine Glucose (UA) Negative (Negative) mg/dL Urine Ketones Negative (Negative) mg/dL Urine Blood Negative (Negative) Urine Nitrite Negative (Negative) Ur Reducing Substances Not Reportable Urine Bilirubin Negative (Negative) Urine Ictotest Not Reportable Urine Urobilinogen < 2.0 (<2.0) mg/dL Ur Leukocyte Esterase Small (Negative) Urine WBC (Auto) < 1.0 (0.0-6.0) /HPF Urine RBC (Auto) < 1.0 (0.0-6.0) /HPF Urine HCG, Qual Negative (Negative) ED Course Vital Signs 08/15/21 15:06 Temperature 98.5 F Pulse Rate 75 Respiratory 14 Rate Blood Pressure 118/73 O2 Sat by Pulse 99 Oximetry ED Medical Decision Making - Medical Decision Making Lab Results 08/15/21 Range/Units Unknown Urine Color Straw (Yellow) Urine Turbidity Clear (Clear) Urine pH 7.0 (5.0-7.0) Ur Specific [place] 1.010 (1.003-1.030) Urine Protein 30 mg/dl (Negative) mg/dL Urine Glucose (UA) Negative (Negative) mg/dL Urine Ketones Negative (Negative) mg/dL Urine Blood Negative (Negative) Urine Nitrite Negative (Negative) Ur Reducing Substances Not Reportable Urine Bilirubin Negative (Negative) Urine Ictotest Not Reportable Urine Urobilinogen < 2.0 (<2.0) mg/dL Ur Leukocyte Esterase Small (Negative) Urine WBC (Auto) < 1.0 (0.0-6.0) /HPF Urine RBC (Auto) < 1.0 (0.0-6.0) /HPF Urine HCG, Qual Negative (Negative) Vital Signs 08/15/21 15:06 Temperature 98.5 F Pulse Rate 75 Respiratory 14 Rate Blood Pressure 118/73 O2 Sat by Pulse 99 Oximetry ua noted dc home with dc plan of care including diet activity meds and follow up. She verbalizes understanding Critical care attestation.: If time is entered above; I have spent that time in minutes in the direct care of this critically ill patient, excluding procedure time. ED Disposition Clinical Impression: UTI (urinary tract infection) Qualifiers: Urinary tract infection type: site unspecified Disposition: HOME / SELF CARE / HOMELESS Is pt being admited?: No Does the pt Need Aspirin: No Condition: Stable Instructions: Urinary Tract Infection, Adult Additional Instructions: med as ordered today until gone stay well hydrated with water motrin or tylenol for pain follow up with obgyn for annual exam Referrals: CANDICE ÁLVAREZ MD [Staff Physician] - 3-5 Days Time of Disposition: 16:18
[2021-08-15 16:34] VITALS: BP 149/81
== END 2021-08-15 16:32 | disposition home or self-care (01) ==
LOC: ED 13:37
DX: N39.0 Urinary tract infection, site not specified (principal)
CPT/HCPCS: 81001; 81025; 99283

== ENCOUNTER 2021-12-25 15:57 | Emergency (ER) | payer SELFPAY ==
[2021-12-25 17:17] VITALS: BP 155/77
[2021-12-25 18:24] LABS: Bilirubin,Urine NEG (Negative); Blood,Urine MOD (Negative); Color,Urine Yellow (Yellow); Protein,Urine <15 mg/dL mg/dL (Negative); Urobilinogen,Urine < 2.0 mg/dL (<2.0)
[2021-12-25 18:33] LABS: Mucus,Urine FEW /HPF
[2021-12-25 18:47] LABS: HCG Qualitative,Urine Positive (Negative)
[2021-12-25] MEDS ORDERED: AZITHROMYCIN 250 MG TAB PO ONE (20:33)
[2021-12-25] MEDS ORDERED: LIDOCAINE-MPF (1%) 10 MG/1 ML VIAL 5 ML INFILTRATI ONE (20:33)
--- NOTE | 2021-12-25 20:40 | Emergency Department Report ---
ED Female HPI - General Chief complaint: Urogenital-Female Stated complaint: BI Time Seen by Provider: 12/25/21 20:17 Source: patient Mode of arrival: Ambulatory Limitations: No Limitations - History of Present Illness Initial comments: Is a 41-year-old female who presents for STD exposure. Patient is currently x1 month per patient last menstrual cycle 1 month ago. States positive home test. Patient denies abdominal pain no vaginal bleeding no back pain no nausea or vomiting. However requesting treatment for STI prophylaxis for STD exposure. Patient states she is currently getting . Patient denies symptoms at this time. There is no fever, chills, nausea, vomiting no abdominal pain, no back pain. No urinary frequency urgency or hematuria. Patient denies vaginal discharge. MD Complaint: possible STD - Related Data Previous Rx's Medication Instructions Recorded Last Taken Type Dicyclomine [Bentyl] 20 mg PO Q6H PRN #30 tablet 01/12/20 Unknown Rx Diphenoxylate/Atropine [Lomotil] 1 - 2 tab PO Q4H PRN #15 tablet 01/12/20 Unknown Rx Famotidine [Pepcid] 20 mg PO BID #30 tablet 01/12/20 Unknown Rx Ondansetron [Zofran Odt] 4 mg PO Q6HR PRN #20 tab.rapdis 01/12/20 Unknown Rx Cyclobenzaprine [Flexeril] 10 mg PO QHS PRN #10 tablet 05/01/20 Unknown Rx Naproxen 500 mg PO Q12H PRN #12 tablet 05/01/20 Unknown Rx Ibuprofen [Motrin] 600 mg PO Q8H PRN #30 tablet 05/29/20 Unknown Rx Nitrofurantoin [place]/M-Cryst 100 mg PO Q12HR #14 capsule 05/29/20 Unknown Rx [Macrobid CAP] metroNIDAZOLE [Flagyl TAB] 500 mg PO Q12HR #14 tab 11/22/20 Unknown Rx Clindamycin [Clindamycin CAP] 150 mg PO Q8HR #30 capsule 01/22/21 Unknown Rx Cyclobenzaprine [Flexeril] 10 mg PO QHS PRN #10 tablet 06/17/21 Unknown Rx Naproxen 500 mg PO Q12H PRN #12 tablet 06/17/21 Unknown Rx Sulfamethoxazole/Trimethoprim 1 each PO BID #10 tablet 08/15/21 Unknown Rx [Bactrim DS TAB] Clindamycin [Clindamycin CAP] 300 mg PO Q8H 7 Days #21 cap 12/25/21 Unknown Rx metroNIDAZOLE [metroNIDAZOLE 1 applicatio VG QHS 7 Days #1 tube 12/25/21 Unknown Rx VAGINAL 0.75% gel] Allergies Allergy/AdvReac Type Severity Reaction Status Date / Time No Known Allergies Allergy Verified 08/15/21 15:10 ED Review of Systems ROS: Stated complaint: BI Other details as noted in HPI Constitutional: denies: chills, fever Eyes: denies: eye pain, eye discharge, vision change ENT: denies: ear pain, throat pain Respiratory: denies: cough, shortness of breath, wheezing Cardiovascular: denies: chest pain, palpitations Endocrine: no symptoms reported, intolerance to heat Gastrointestinal: denies: abdominal pain, nausea, vomiting, diarrhea, melena Genitourinary: as per HPI. denies: urgency, dysuria, frequency, hematuria, discharge Musculoskeletal: denies: back pain, joint swelling, arthralgia Skin: denies: rash, lesions Neurological: denies: headache, weakness, paresthesias Psychiatric: denies: anxiety, depression Hematological/Lymphatic: denies: easy bleeding, easy bruising ED Past Medical Hx - Past Medical History Additional medical history: high cholesterol - Surgical History Additional Surgical History: x2 - Social History Smoking Status: Never Smoker - Medications Home Medications: Home Medications Medication Instructions Recorded Confirmed Last Taken Type Dicyclomine [Bentyl] 20 mg PO Q6H PRN #30 tablet 01/12/20 Unknown Rx Diphenoxylate/Atropine [Lomotil] 1 - 2 tab PO Q4H PRN #15 tablet 01/12/20 Unknown Rx Famotidine [Pepcid] 20 mg PO BID #30 tablet 01/12/20 Unknown Rx Ondansetron [Zofran Odt] 4 mg PO Q6HR PRN #20 tab.rapdis 01/12/20 Unknown Rx Cyclobenzaprine [Flexeril] 10 mg PO QHS PRN #10 tablet 05/01/20 Unknown Rx Naproxen 500 mg PO Q12H PRN #12 tablet 05/01/20 Unknown Rx Ibuprofen [Motrin] 600 mg PO Q8H PRN #30 tablet 05/29/20 Unknown Rx Nitrofurantoin [place]/M-Cryst 100 mg PO Q12HR #14 capsule 05/29/20 Unknown Rx [Macrobid CAP] metroNIDAZOLE [Flagyl TAB] 500 mg PO Q12HR #14 tab 11/22/20 Unknown Rx Clindamycin [Clindamycin CAP] 150 mg PO Q8HR #30 capsule 01/22/21 Unknown Rx Cyclobenzaprine [Flexeril] 10 mg PO QHS PRN #10 tablet 06/17/21 Unknown Rx Naproxen 500 mg PO Q12H PRN #12 tablet 06/17/21 Unknown Rx Sulfamethoxazole/Trimethoprim 1 each PO BID #10 tablet 08/15/21 Unknown Rx [Bactrim DS TAB] Clindamycin [Clindamycin CAP] 300 mg PO Q8H 7 Days #21 cap 12/25/21 Unknown Rx metroNIDAZOLE [metroNIDAZOLE 1 applicatio VG QHS 7 Days #1 tube 12/25/21 Un known Rx VAGINAL 0.75% gel] ED Physical Exam - General Limitations: No Limitations General appearance: alert, in no apparent distress - Head Head exam: Present: normocephalic - Eye Eye exam: Present: EOMI Pupils: Present: normal accommodation - ENT ENT exam: Present: mucous membranes moist - Neck Neck exam: Present: normal inspection, full ROM. Absent: tenderness, lymphadenopathy - Respiratory Respiratory exam: Present: normal lung sounds bilaterally. Absent: respiratory distress, wheezes, stridor - Cardiovascular Cardiovascular Exam: Present: regular rate, normal rhythm, normal heart sounds. Absent: systolic murmur, diastolic murmur, rubs, gallop - GI/Abdominal GI/Abdominal exam: Present: soft, normal bowel sounds. Absent: distended, tenderness, guarding, rebound, rigid, bruit, hernia - Rectal Rectal exam: Present: deferred - External exam: Present: normal external exam Speculum exam: Present: vaginal discharge (White non-malodorous). Absent: erythema, cervical discharge, vaginal bleeding, foreign body, laceration Bi-manual exam: Absent: cervical motion tendernes - Extremities Exam Extremities exam: Present: normal inspection, full ROM. Absent: tenderness, pedal edema - Back Exam Back exam: Present: normal inspection, full ROM. Absent: CVA tenderness (R), CVA tenderness (L) - Neurological Exam Neurological exam: Present: alert, oriented X3, CN II-XII intact, normal gait - Expanded Neurological Exam Expanded Patient oriented to: Present: person, place, time - Psychiatric Psychiatric exam: Present: normal affect, normal mood - Skin Skin exam: Present: warm, dry, intact, normal color. Absent: rash ED Course Vital Signs 12/25/21 17:13 Temperature 97.9 F Pulse Rate 64 Respiratory 16 Rate Blood Pressure 155/77 O2 Sat by Pulse 100 Oximetry ED Medical Decision Making - Lab Data Labs 12/25/21 Unknown Urine Color Yellow Urine Turbidity Clear Urine pH 6.0 Ur Specific [place] 1.026 Urine Protein <15 mg/dl Urine Glucose (UA) Neg Urine Ketones Neg Urine Blood Mod Urine Nitrite Neg Urine Bilirubin Neg Urine Urobilinogen < 2.0 Ur Leukocyte Esterase Tr Urine WBC (Auto) 17.0 H Urine RBC (Auto) 12.0 U Epithel Cells (Auto) 7.0 Urine Mucus Few Urine HCG, Qual Positive A Wet prep moderate trichomonas, no yeast growing 20% clue use, - Medical Decision Making UA noted as above, hates ED G noted as above, patient has follow-up with [facility]ATCH[facility] WORKER in the next 1 to 2 days. Blood prep noted for trichomonas. Patient treated for STI prophylactically. Patient will DC to home with prescriptions. Patient will follow-up with [facility] [employer] in 1 to 2 days as scheduled. Patient will follow-up with health department for HIV and HSV screening. Patient currently ANO x3 tolerating p.o. intake there is no nausea no vomiting no abdominal pain no vaginal bleeding no back pain. Patient verbalized agreement understanding with discharge plan. Patient will be DC'd home in stable condition at this time. Critical care attestation.: If time is entered above; I have spent that time in minutes in the direct care of this critically ill patient, excluding procedure time. ED Disposition Clinical Impression: Sexually transmissible disease Qualifiers: Weeks of gestation: less than 8 weeks Qualified Code(s): Z3A.01 - Less than 8 weeks gestation of Disposition: 01 HOME / SELF CARE / HOMELESS Is pt being admited?: No Does the pt Need Aspirin: No Condition: Stable Instructions: First Trimester of , Trichomoniasis Additional Instructions: Take medications as prescribed, follow-up with your [facility] [employer]ELOPER doctor in 1 to 2 days. Follow-up with health department for HIV and HSV screening. Return to emergency department should symptoms worsen. Prescriptions: metroNIDAZOLE [metroNIDAZOLE VAGINAL 0.75% gel] 1 applicatio VG QHS 7 Days #1 tube Clindamycin [Clindamycin CAP] 300 mg PO Q8H 7 Days #21 cap Referrals: ROXIE SAPP MD [Staff Physician] - 3-5 Days [facility] [Outside] - 3-5 Days Forms: Work/School Release Form(ED) Time of Disposition: 20:48
== END 2021-12-25 21:45 | disposition home or self-care (01) ==
LOC: ED 15:57
DX: O98.311 Other infections with a predominantly sexual mode of transmission complicating pregnancy, first trimester (principal); E78.00 Pure hypercholesterolemia, unspecified; Z98.890 Other specified postprocedural states; Z79.899 Other long term (current) drug therapy; Z3A.08 8 weeks gestation of pregnancy
CPT/HCPCS: 81001; 81025; 87086; 87210; 99284; J0696; J3490